=== PATIENT | male | born 1990 | race African-American/Black ===

== ENCOUNTER 2018-06-30 14:02 | Emergency (ER) | payer OTHER ==
[2018-06-30 14:13] VITALS: BP 134/73; PULSE 73; TEMP 99; BMI 22.9
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
[2018-06-30] MEDS: CYCLOBENZAPRINE HCL 10 MG TABLET (FP) PO ONE ×2 (14:49→15:08)
[2018-06-30] MEDS ORDERED: CYCLOBENZAPRINE HCL 10 MG TABLET (FP) ONE (15:02)
== END 2018-06-30 15:08 | disposition home or self-care (01) ==
LOC: FER 14:02
DX: S13.4XXA Sprain of ligaments of cervical spine, initial encounter (principal); V43.52XA Car driver injured in collision with other type car in traffic accident, initial encounter; Y92.410 Unspecified street and highway as the place of occurrence of the external cause
CPT/HCPCS: 99281-25

== ENCOUNTER 2021-02-13 19:59 | Emergency (ER) | payer OTHER | END 2021-02-13 20:04 | disposition home or self-care (01) | LOC: JVIRT 19:59 | DX: U07.1 COVID-19 (principal) | CPT/HCPCS: C9803; G2251-GT; Q3014-GT; U0003; U0005 ==